=== PATIENT | male | born 2000 | race Asian ===

== ENCOUNTER 2025-02-21 09:03 | Emergency (ER) | payer MEDICAID ==
[~2025-02-21] VITALS: Ht 170.2 cm; Wt 68.0 kg
[2025-02-21 09:12] VITALS: O2SAT 99
[2025-02-21] MEDS ORDERED: AMOX1TAB16 MT (09:56)
[2025-02-21] MEDS ORDERED: IBUP-2028 MT (09:56)
[2025-02-21] MEDS ORDERED: OFLO5DRO4 RIGHT EAR (09:56)
[2025-02-21] MEDS ORDERED: TOPUD PO (09:56)
[2025-02-21 10:09] VITALS: BP 126/78; PULSE 64; RESP 16; TEMP 36.5; O2SAT 100
== END 2025-02-21 10:11 | disposition home or self-care (01) ==
LOC: ER 09:03
DX: H66.91 Otitis media, unspecified, right ear (principal); H60.91 Unspecified otitis externa, right ear
CPT/HCPCS: 99283

== ENCOUNTER 2025-02-24 09:09 | Emergency (ER) | payer MEDICAID ==
[~2025-02-24] VITALS: Ht 180.3 cm; Wt 80.0 kg
[~2025-02-24 09:09] MED LIST: AMOX1TAB16 MT; IBUP-2028 MT; OFLO5DRO4 RIGHT EAR; TOPUD PO
[2025-02-24 09:19] VITALS: O2SAT 100
[2025-02-24] MEDS: KETOROLAC 15MG/ML VIAL IV ONE (11:22)
[2025-02-24 11:58] LABS: BASOPHILS % 1.0 % (0.0-2.0); EOSINOPHILS % 2.5 % (0.0-5.0); HEMATOCRIT. 46.2 % (42.0-52.0); HEMOGLOBIN. 15.0 g/dL (14.0-18.0); LYMPHOCYTES % 37.9 % (20.0-50.0); MEAN PLATELET VOLUME 9.4 fl (7.4-10.4); MONOCYTES % 7.5 % (2.0-8.0); NEUTROPHILS % 51.1 % (40.0-76.0); PLATELET 201 x1000/uL (130-400); RED BLOOD CELL COUNT 5.80 mill/uL (4.7-6.1); RED CELL DISTRIBUTION WIDTH 13.5 % (11.6-14.6)
[2025-02-24 12:37] LABS: CREATININE 1.1 mg/dL (0.6-1.3); UREA NITROGEN BLOOD < 5 mg/dL (9-23)
[2025-02-24] MEDS: IOHEXOL-300 100 ML BOTTLE ONE (13:02)
[2025-02-24] MEDS ORDERED: P50 MT (13:23)
[2025-02-24] MEDS ORDERED: POLY15DR17 RIGHTEYE (13:23)
[2025-02-24] MEDS ORDERED: VALA100044 MT (13:23)
[2025-02-24 13:45] VITALS: BP 128/80; PULSE 72; RESP 18; TEMP 36.8; O2SAT 100
== END 2025-02-24 13:46 | disposition home or self-care (01) ==
LOC: ER 09:44
DX: G51.0 Bell's palsy (principal); Z79.624 Long term (current) use of inhibitors of nucleotide synthesis
CPT/HCPCS: 80048; 85025; 36415; 70450; 70487; 96374; 99285; Q9967; J1885; Z7610 ×3

== ENCOUNTER 2025-02-28 20:45 | Emergency (ER) | payer MEDICAID ==
[~2025-02-28] VITALS: Ht 170.2 cm; Wt 59.0 kg
[~2025-02-28 20:45] MED LIST changes: +P50 MT; +POLY15DR17 RIGHTEYE; +VALA100044 MT
[2025-02-28 21:26] VITALS: O2SAT 99
[2025-02-28 23:35] VITALS: BP 125/78; PULSE 62; RESP 18; TEMP 36.7; O2SAT 99
== END 2025-02-28 23:37 | disposition home or self-care (01) ==
LOC: ER 20:45
DX: G51.0 Bell's palsy (principal); Z88.0 Allergy status to penicillin
CPT/HCPCS: 99282